=== PATIENT | male | born 1940 | race Caucasian/White ===

== ENCOUNTER → 2016-08-11 | Outpatient (CLI) | payer MEDICARE, OTHER ==
--- NOTE | ~2016-08-11 | PUL ---
PATIENT'S NAME: YARELIS HASSAN [facility] AGE: 76 Y [address] ROOM: [place] [address] LOCATION: [facility] ADMIT DATE: 08/11/2016 Pulmonary DISCHARGE DATE: FAMILY PHYSICIAN: Lee Abarca MD ATTENDING PHYSICIAN: Lee Abarca NAME OF PROCEDURE: Sleep study PROCEDURE DATE: 08/11/16 TECH: RAVINDRA Lawrence TEST #: [facility]# [id number] TECHNICAL PARAMETERS: The patient was studied using International 10/20 measuring system. While the patient was studied, there was continuous monitoring of EEG (8 leads), EOG (2 leads), EKG (3 leads), submental EMG (3 leads), tibial (4 leads), respiratory inductive plethysmography (RIP) for thoracic and abdominal effort, oral and nasal airflow with a thermocouple and pressure transducer, and oximetry. The data entry technician also performed visual and auditory observations noting things like body position, patient's status, breath sounds, artifact, snoring level and patient comments. Continuous sound was monitored using a 2-way speaker system and video monitoring was performed using an infrared camera. Review of the entire study was performed epoch by epoch utilizing a single epoch and multiple epoch capability sleep system. MEDICAL HISTORY: The patient is a 76-year-old overweight man with daytime sleepiness and snoring. SLEEP STAGE SUMMARY: The patient was studied for 398 minutes of which he slept 61 minutes. He fell asleep in 10 minutes and slept for 15% of the night. Sleep architecture revealed an absence of REM or slow wave sleep. RESPIRATORY SUMMARY: Oxygen saturations ranged from 80-92% and were below 88% for 45 minutes. There were 4 hypopneas and 85 apneas for an apnea/hypopnea index severely elevated at 86 events per hour. Most of the apneas were sleep onset central events and not obstructive events, probably due to the patient's fragmented sleep. EKG SUMMARY: No dysrhythmias were noted. LIMB MOVEMENT SUMMARY: No clinically relevant periodic limb movements were noted. SUMMARY: Interpretation is difficult due to limited sleep overall. In the PATIENT'S NAME: YARELIS HASSAN [facility] AGE: 76 Y [address] ROOM: [place] [address] LOCATION: [facility] ADMIT DATE: 08/11/2016 Pulmonary DISCHARGE DATE: FAMILY PHYSICIAN: Lee Abarca MD ATTENDING PHYSICIAN: Lee Abarca limited sleep the patient had there do not appear to be significant obstructive apneas. There were frequent central apneas which were probably due to fragmented sleep as they appeared to be sleep onset central apneas. Non apneic hypoxemia was noted throughout the study. PLAN: Patient will receive results from the ordering provider. MD OSMAR MONCADA/ /[id number] dtt: 08/19/16 0827 , Desmond Hutchinson. dtd: 08/15/16 1341
== END | disposition disaster alternative care site (69) ==
LOC: GSLP 20:20
DX: G47.33 Obstructive sleep apnea (adult) (pediatric) (principal)